=== PATIENT | male | born 2000 | race Caucasian/White ===

== ENCOUNTER 2018-06-04 11:21 | Emergency (ER) | payer OTHER ==
[2018-06-04] MEDS: KETOROLAC 60 MG INJ IM (11:56)
== END 2018-06-04 14:10 | disposition home or self-care (01) ==
LOC: FTE 11:21
DX: M54.2 Cervicalgia (principal); M54.6 Pain in thoracic spine
CPT/HCPCS: 72040; 72072; 96372; 99284-25